=== PATIENT | male | born 1975 | race Caucasian/White ===

== ENCOUNTER 2023-09-24 06:20 | Emergency (ER) | payer OTHER ==
[~2023-09-24] VITALS: Ht 193 cm; Wt 115.0 kg
[2023-09-24 06:51] VITALS: BP 135/82; PULSE 79; RESP 16; TEMP 98; O2SAT 98
[2023-09-24 08:14] LABS: EOSINOPHILS % 3.5 % (0.0-5.0); HEMATOCRIT. 46.1 % (42.0-52.0); HEMOGLOBIN. 15.6 g/dL (14.0-18.0); LYMPHOCYTES % 29.6 % (20.0-50.0); MEAN CORPUSCULAR HEMOGLOBIN 29.1 pg (28.0-32.0); MEAN CORPUSCULAR HGB CONC 33.9 g/dL (31.0-37.0); MEAN PLATELET VOLUME 9.2 fl (7.4-10.4); MONOCYTES % 11.3 % (2.0-8.0); NEUTROPHILS % 54.6 % (40.0-76.0); PLATELET 233 x1000/uL (130-400); RED BLOOD CELL COUNT 5.36 mill/uL (4.7-6.1); RED CELL DISTRIBUTION WIDTH 14.4 % (11.6-14.6); WHITE BLOOD COUNT 6.8 x1000/uL (4.5-11.0)
[2023-09-24 08:29] LABS: ALANINE AMINOTRANSFERASE 146 IU/L (10-49); ASPARTATE AMINOTRANSFERASE 97 IU/L (<34); BILIRUBIN TOTAL 0.5 mg/dL (0.1-1.0); CALCIUM 9.2 mg/dL (8.7-10.4); CARBON DIOXIDE 31 mEq/L (21-32); CHLORIDE 104 mEq/L (98-107); GLUCOSE 95 mg/dL (70-105); POTASSIUM 3.8 mEq/L (3.5-5.1); SODIUM 138 mEq/L (136-145); UREA NITROGEN BLOOD 12 mg/dL (9-23)
[2023-09-24] MEDS ORDERED: AMOX1TAB16 MT (09:06)
== END 2023-09-24 10:14 | disposition home or self-care (01) ==
LOC: ER 06:20
DX: K04.7 Periapical abscess without sinus (principal); M25.551 Pain in right hip
CPT/HCPCS: 36415; 80053; 85025; 99283